=== PATIENT | female | born 1980 | race Caucasian/White ===

== ENCOUNTER 2018-09-18 14:12 | Emergency (ER) | payer OTHER ==
[~2018-09-18] VITALS: Ht 172.7 cm; Wt 75.7 kg
[~2018-09-18 14:12] MED LIST: IBUP-1222 PO
[2018-09-18 14:25] VITALS: BP 130/80
== END 2018-09-18 15:22 | disposition home or self-care (01) ==
LOC: ED 15:15
DX: M25.561 Pain in right knee (principal); F12.10 Cannabis abuse, uncomplicated
CPT/HCPCS: 29530; 99283